=== PATIENT | male | born 1970 | race Caucasian/White ===

== ENCOUNTER 2017-02-23 12:19 | Emergency (ER) | payer SELFPAY ==
[~2017-02-23] VITALS: Ht 172.7 cm; Wt 82.0 kg
[~2017-02-23 12:19] MED LIST: Z.0.NO CURRENT MEDS
[2017-02-23 12:21] VITALS: BP 128/79; PULSE 100; RESP 18; TEMP 98.7; O2SAT 98
[2017-02-23] MEDS ORDERED: ANTICRE6 (12:26)
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
== END 2017-02-23 15:10 | disposition home or self-care (01) ==
LOC: PHED 12:19
DX: M54.2 Cervicalgia (principal); M54.5 Low back pain; M25.511 Pain in right shoulder; F17.200 Nicotine dependence, unspecified, uncomplicated
CPT/HCPCS: 70450; 72125; 72131; 73030